=== PATIENT | male | born 1975 | race Caucasian/White ===

== ENCOUNTER 2018-06-29 22:42 | Emergency (ER) | payer OTHER ==
[2018-06-29 23:54] LABS: Absolute Monocytes 0.5 K/uL (0.1-1.3); Absolute Neutrophil 3.8 K/uL (1.8-8.0); Basophils % 1.2 % (0-1.3); Eosinophils % 6.2 % (0-4.4); Hematocrit 44.3 % (39.6-49.0); Lymphocytes % 28.8 % (15.3-44.8); MPV 10.8 fL (7.6-11.3); Monocytes % 7.8 % (3.3-12.3)
[2018-06-29 23:56] LABS: Protime INR 0.91
[2018-06-29] MEDS ORDERED: MORPHINE 4 MG/ML SYR ONE (23:57)
[2018-06-29] MEDS ORDERED: ONDANSETRON 4 MG/2 ML VIAL ONE (23:57)
[2018-06-29] MEDS ORDERED: NA CHLORIDE 0.9% 1,000 ML ONE (23:58)
[2018-06-30 00:07] LABS: Urine Blood NEGATIVE (NEG); Urine Glucose NEGATIVE (NEG); Urine Protein TRACE (NEG); Urine Specific Gravity 1.025 (1.005-1.030); Urine pH 6.5 (5.0-7.0)
[2018-06-30 00:17] LABS: ALT/SGPT 47 U/L (12-78); AST/SGOT 30 U/L (15-37); Albumin 3.9 g/dL (3.4-5.0); Alkaline Phosphatase 92 U/L (45-117); BUN Blood Urea Nitrogen 11 mg/dL (7-18); Bicarbonate 25 mmol/L (21-32); Bilirubin Direct 0.1 mg/dL (0-0.2); Bilirubin Total 0.5 mg/dL (0.2-1.0); Glucose Level 109 mg/dL (74-106); Magnesium 2.2 mg/dL (1.8-2.4); NT PRO-BNP 54 pg/mL (<125); Potassium 3.8 mmol/L (3.5-5.1); Protein, Total 7.5 g/dL (6.4-8.2); Sodium Level 142 mmol/L (136-145); Troponin (Emerg Dept Use Only) < 0.02 ng/mL (0.0-0.045)
[2018-06-30 00:17] LABS: Barbiturates NEGATIVE (NEGATIVE); Benzodiazepines NEGATIVE (NEGATIVE); Cocaine NEGATIVE (NEGATIVE); METHAMPHETAM NEGATIVE (NEGATIVE); Methadone NEGATIVE (NEGATIVE); Opiates NEGATIVE (NEGATIVE); Phencyclidine NEGATIVE (NEGATIVE); THC Cannibis NEGATIVE (NEGATIVE)
[2018-06-30] MEDS ORDERED: KETOROLAC 30 MG/ML INJ ONE (01:49)
--- NOTE | 2018-06-30 02:53 | EDPHYS ---
Physician Documentation [facility] Name: Ever Mixon Age: 43 yrs Sex: Male : 1975 Arrival Date: 06/29/2018 Time: 22:42 Bed 24 Private MD: ED Physician Abilio Cook HPI: 06/29 23:40 This 43 yrs old Male presents to ER via Ambulatory with complaints of juan Headache, Worst Ever. 23:40 The patient complains of pain to the forehead, right eye and right cheek. The patient juan describes the headache as aching, constant. Onset: The symptoms/episode began/occurred this morning, today. Associated signs and symptoms: The patient has no apparent associated signs or symptoms. Severity of symptoms: At its worst the pain was severe, the "worst in my life", in the emergency department the pain is unchanged. Headache History: Denies prior headaches. The symptoms are alleviated by Darkened room, quiet, remaining still. Historical: - Allergies: 22:55 No Known Allergies; jb4 - Home Meds: 22:55 [place] 5-325 mg Oral tab [Active]; Maximum Strenght Sinus relief (phenyleph HCL jb4 5mg/diphenhydramine HCL 12.5/ acetomenophen 325mg) [Active]; - PMHx: 22:55 None; jb4 - PSHx: 22:55 pins in left ankle and pin removal.; jb4 - Immunization history:: Adult Immunizations up to date. - Social history:: Smoking status: Patient/guardian denies using tobacco, Patient/guardian denies using alcohol. - Ebola Screening: : No symptoms or risks identified at this time. - Family history:: not pertinent. ROS: 23:40 Constitutional: Negative for fever, chills, and weight loss, Eyes: Negative for injury, juan pain, redness, and discharge, ENT: Negative for injury, pain, and discharge, Neck: Negative for injury, pain, and swelling, Cardiovascular: Negative for chest pain, palpitations, and edema, Respiratory: Negative for shortness of breath, cough, wheezing, and pleuritic chest pain, Abdomen/GI: Negative for abdominal pain, nausea, vomiting, diarrhea, and constipation, Back: Negative for injury and pain, : Negative for injury, bleeding, discharge, and swelling, MS/Extremity: Negative for injury and deformity, Skin: Negative for injury, rash, and discoloration, Psych: Negative for depression, anxiety, suicide ideation, homicidal ideation, and hallucinations, Allergy/Immunology: Negative for hives, rash, and allergies, Endocrine: Negative for neck swelling, polydipsia, polyuria, polyphagia, and marked weight changes, Hematologic/Lymphatic: Negative for swollen nodes, abnormal bleeding, and unusual bruising. 23:40 Neuro: Positive for headache. Exam: 23:43 Constitutional: This is a well developed, well nourished patient who is awake, alert, juan and in no acute distress. Head/Face: Normocephalic, atraumatic. Eyes: Pupils equal round and reactive to light, extra-ocular motions intact. Lids and lashes normal. Conjunctiva and sclera are non-icteric and not injected. Cornea within normal limits. Periorbital areas with no swelling, redness, or edema. ENT: Nares patent. No nasal discharge, no septal abnormalities noted. Tympanic membranes are normal and external auditory canals are clear. Oropharynx with no redness, swelling, or masses, exudates, or evidence of obstruction, uvula midline. Mucous membranes moist. Neck: Trachea midline, no thyromegaly or masses palpated, and no cervical lymphadenopathy. Supple, full range of motion without nuchal rigidity, or vertebral point tenderness. No Meningismus. Chest/axilla: Normal chest wall appearance and motion. Nontender with no deformity. No lesions are appreciated. Cardiovascular: Regular rate and rhythm with a normal S1 and S2. No gallops, murmurs, or rubs. Normal PMI, no JVD. No pulse deficits. Respiratory: Lungs have equal breath sounds bilaterally, clear to auscultation and percussion. No rales, rhonchi or wheezes noted. No increased work of breathing, no retractions or nasal flaring. Abdomen/GI: Soft, non-tender, with normal bowel sounds. No distension or tympany. No guarding or rebound. No evidence of tenderness throughout. Back: No spinal tenderness. No costovertebral tenderness. Full range of motion. Skin: Warm, dry with normal turgor. Normal color with no rashes, no lesions, and no evidence of cellulitis. MS/ Extremity: Pulses equal, no cyanosis. Neurovascular intact. Full, normal range of motion. Psych: Awake, alert, with orientation to person, place and time. Behavior, mood, and affect are within normal limits. 23:43 Neuro: Orientation: is normal, appropriate for stated age, no acute changes, Mentation: is normal, appropriate for stated age, no acute changes, Memory: is normal, appropriate for stated age, no acute changes, Cranial nerves: grossly normal, is grossly normal based on the patient's age, no acute changes, Cerebellar function: is grossly normal, is grossly normal based on the patient's age, no acute changes, Motor: is normal, is grossly normal based on the patient's age, Sensation: is normal, no obvious gross deficits, appropriate Gait: not tested. Deep tendon reflexes are 2+ (normal) in the bilateral brachioradialis, bicep, tricep and patellar and Achilles tendons, Babinski testing is normal, seizure activity, is not displayed by the patient. Vital Signs: 23:00 BP 158 / 104; Pulse 66; Resp 16; Temp 97.8(O); Pulse Ox 98% on R/A; Weight 90.72 kg; jb4 Height 5 ft. 7 in. (170.18 cm); Pain 10/10; 0418 00:07 BP 132 / 75; Pulse 65; Resp 18; Pulse Ox 100% on R/A; Pain 3/10; mg2 01:09 BP 143 / 89; Pulse 57; Resp 18; Pulse Ox 95% on R/A; mg2 02:13 BP 130 / 86; Pulse 55; Resp 18; Pulse Ox 95% on R/A; mg2 06/29 23:00 Body Mass Index 31.32 (90.72 kg, 170.18 cm) jb4 02:13 patient is sleeping, mg2 MDM: 06/29 23:29 Patient medically screened. [facility] 23:43 Data reviewed: vital signs, nurses notes, lab test result(s), EKG, radiologic studies, [facility] CT scan, plain films. 06/29 23:31 Order name: Basic Metabolic Panel; Complete Time: 01:11 juan 06/29 23:31 Order name: CBC with Diff; Complete Time: 01:11 juan 06/29 23:31 Order name: LFT's; Complete Time: 01: juan 06/29 23:31 Order name: Magnesium; Complete Time: 01: [facility] 06/29 23:31 Order name: NT PRO-BNP; Complete Time: 01:11 [facility] 06/29 23:31 Order name: PT-INR; Complete Time: 01:11 [facility] 06/29 23:31 Order name: Troponin (emerg Dept Use Only); Complete Time: 01:11 [facility] 06/29 23:31 Order name: XRAY Chest (1 view) [facility] 06/29 23:31 Order name: UDS; Complete Time: 01:11 [facility] 06/29 23:31 Order name: CT Head Brain wo Cont [facility] 06/29 23:33 Order name: CT Head Angio [facility] 06/30 00:04 Order name: Urine Dipstick--Ancillary (enter results) cm6 06/30 00:07 Order name: Urine Dipstick-Ancillary; Complete Time: 01:11 EDID 06/29 23:31 Order name: Cardiac monitoring; Complete Time: 00:02 [facility] 06/29 23:31 Order name: EKG - Nurse/Tech; Complete Time: 00:02 [facility] 06/29 23:31 Order name: IV Saline Lock; Complete Time: 00:03 [facility] 06/29 23:31 Order name: Labs collected and sent; Complete Time: 00:03 [facility] 06/29 23:31 Order name: O2 Per Protocol; Complete Time: 00:03 [facility] 06/29 23:31 Order name: O2 Sat Monitoring; Complete Time: 00:03 [facility] 06/29 23:31 Order name: Urine Dipstick-Ancillary (obtain specimen); Complete Time: 00:02 [facility] Administered Medications: 06/30 00:02 Drug: NS 0.9% 500 ml Route: IV; Rate: bolus; Site: right hand; mg2 01:10 Follow up: Response: No adverse reaction; IV Status: Completed infusion mg2 00:02 Drug: morphine 4 mg Route: IVP; Site: right hand; mg2 01:10 Follow up: Response: No adverse reaction; Marked relief of symptoms mg2 00:02 Drug: Zofran 4 mg Route: IVP; Site: right hand; mg2 01:09 Follow up: Response: No adverse reaction; Marked relief of symptoms mg2 00:27 Drug: NS 0.9% 1000 ml Route: IV; Rate: 125 ml/hr; Site: right antecubital; mg2 03:05 Follow up: Response: No adverse reaction; IV Status: Completed infusion mg2 01:38 Drug: TORadol 30 mg Route: IVP; Site: right antecubital; mg2 02:16 Follow up: Response: No adverse reaction; Marked relief of symptoms mg2 03:04 Drug: Rocephin 1 grams Route: IV; Rate: per protocol; Site: right antecubital; mg2 03:04 Follow up: Response: No adverse reaction; Medication administered at discharge.; IV mg2 Status: Completed infusion 03:04 Drug: Augmentin 875 mg Route: PO; mg2 03:04 Follow up: Response: No adverse reaction; Medication administered at discharge. mg2 Disposition: 06/30/18 02:53 Discharged to Home. Impression: Headache, Migraine, Acute sinusitis. - Condition is Stable. - Discharge Instructions: General Headache Without Cause, Migraine Headache, Sinus Headache, Sinusitis, Adult, Sinusitis, Adult, [id number], Migraine Headache, [id number], General Headache Without Cause, Jvco-bm-Hary, Sinus Headache, Jehx-xh-Vika. - Prescriptions for Fioricet with Codeine 50- 325-40-30 mg Oral capsule - take 1 capsule by ORAL route every 4 hours as needed not to exceed 6 capsules per 24hrs; 26 capsule. Augmentin 875- 125 mg Oral Tablet - take 1 tablet by ORAL route every 12 hours for 10 days; 20 tablet. - Medication Reconciliation Form, Thank You Letter, Antibiotic Education, Prescription Opioid Use, Work release form form. - Follow up: Private Physician; When: 2 - 3 days; Reason: Recheck today's complaints, Continuance of care, Re-evaluation by your physician. Follow up: César Bhandari MD; When: 2 - 3 days; Reason: Recheck today's complaints, Re-evaluation by your physician. - Problem is new. - Symptoms have improved. Signatures: Dispatcher [employer] Abilio Starr MD MD cha Bryson, James, RN RN jb4 Tai Graff RN RN mg2 Corrections: (The following items were deleted from the chart) 03:07 02:53 06/30/2018 02:53 Discharged to Home. Impression: Headache; Migraine; Acute mg2 sinusitis. Condition is Stable. Forms are Medication Reconciliation Form, Thank You Letter, Antibiotic Education, Prescription Opioid Use. Follow up: Private Physician; When: 2 - 3 days; Reason: Recheck today's complaints, Continuance of care, Re-evaluation by your physician. Follow up: César Bhandari; When: 2 - 3 days; Reason: Recheck today's complaints, Re-evaluation by your physician. Problem is new. Symptoms have improved. juan
--- NOTE | 2018-06-30 02:53 | ER ---
Nurse's Notes [facility] Name: Ever Mixon Age: 43 yrs Sex: Male : 1975 Arrival Date: 06/29/2018 Time: 22:42 Bed 24 Private MD: Diagnosis: Headache;Migraine;Acute sinusitis Presentation: 06/29 22:55 Presenting complaint: Patient states: Pt is complaining of a headache that started this jb4 morning. Pt reports taking [place] 5-325 \\T\\ 2100. reports it did not work, took maximum strength sinus relief after and still had no relief. 22:55 Method Of Arrival: Ambulatory jb4 22:55 Transition of care: patient was not received from another setting of care. Onset of jb4 symptoms was June 29, 2018. Risk Assessment: Do you want to hurt yourself or someone else? Patient reports no desire to harm self or others. Initial Sepsis Screen: Does the patient meet any 2 criteria? No. Patient's initial sepsis screen is negative. Does the patient have a suspected source of infection? No. Patient's initial sepsis screen is negative. Care prior to arrival: None. 22:55 Acuity: GEORGE 3 jb4 Triage Assessment: 22:55 Headache History: The patient has had previous headaches and this one is more severe jb4 than previous episodes. General: Appears uncomfortable, Behavior is cooperative. Pain: Pain currently is 10 out of 10 on a pain scale. Pain began this morning Aggravated by Light, Sound Also complains of sleeplessness. Neuro: Level of Consciousness is awake, alert, obeys commands, Oriented to person, place, time, situation. Historical: - Allergies: 22:55 No Known Allergies; jb4 - Home Meds: 22:55 [place] 5-325 mg Oral tab [Active]; Maximum Strenght Sinus relief (phenyleph HCL jb4 5mg/diphenhydramine HCL 12.5/ acetomenophen 325mg) [Active]; - PMHx: 22:55 None; jb4 - PSHx: 22:55 pins in left ankle and pin removal.; jb4 - Immunization history:: Adult Immunizations up to date. - Social history:: Smoking status: Patient/guardian denies using tobacco, Patient/guardian denies using alcohol. - Ebola Screening: : No symptoms or risks identified at this time. - Family history:: not pertinent. Screenin/18 00:05 Abuse screen: Denies threats or abuse. Denies injuries from another. Nutritional mg2 screening: No deficits noted. Tuberculosis screening: No symptoms or risk factors identified. Fall Risk IV access (20 points). Assessment: 00:03 General: Appears in no apparent distress. uncomfortable, Behavior is calm, cooperative. mg2 Pain: Complains of pain in right side of the head down to his neck Pain does not radiate. Pain at worst was 10 out of 10 on a pain scale. Quality of pain is described as aching, Pain began gradually, this morning Is intermittent. Neuro: Level of Consciousness is awake, alert, obeys commands, Oriented to person, place, time, situation, Reports headache in right that is the "worst ever", since morning. Cardiovascular: Capillary refill < 3 seconds Patient's skin is warm and dry. Rhythm is sinus rhythm. Respiratory: Airway is patent Respiratory effort is even, unlabored, Respiratory pattern is regular, symmetrical. GI: No signs and/or symptoms were reported involving the gastrointestinal system. : No signs and/or symptoms were reported regarding the genitourinary system. EENT: No signs and/or symptoms were reported regarding the EENT system. Derm: Skin is intact, is healthy with good turgor, Skin is pink, warm \\T\\ dry. normal. Musculoskeletal: Circulation, motion, and sensation intact. Capillary refill < 3 seconds. 02:12 Reassessment: Patient states feeling better. Patient states symptoms have improved. mg2 Vital Signs: 06/29 23:00 BP 158 / 104; Pulse 66; Resp 16; Temp 97.8(O); Pulse Ox 98% on R/A; Weight 90.72 kg; jb4 Height 5 ft. 7 in. (170.18 cm); Pain 10; 06/30 00:07 BP 132 / 75; Pulse 65; Resp 18; Pulse Ox 100% on R/A; Pain 3/10; mg2 01:09 BP 143 / 89; Pulse 57; Resp 18; Pulse Ox 95% on R/A; mg2 02:13 BP 130 / 86; Pulse 55; Resp 18; Pulse Ox 95% on R/A; mg2 06/29 23:00 Body Mass Index 31.32 (90.72 kg, 170.18 cm) jb4 02:13 patient is sleeping, mg2 ED Course: 06/29 22:42 Patient arrived in ED. am2 23:00 Arm band placed on right wrist. jb4 23:11 Triage completed. jb4 23:20 Tai Graff, RN is Primary Nurse. mg2 23:29 Abilio Cook MD is Attending Physician. juan 06/30 00:05 No provider procedures requiring assistance completed. Inserted saline lock: 20 gauge mg2 in right hand, using aseptic technique. Blood collected. 00:06 Patient has correct armband on for positive identification. Door closed. mg2 00:11 X-ray completed. Portable x-ray completed in exam room. Patient tolerated procedure kw well. 00:19 XRAY Chest (1 view) In Process Unspecified. EDMS 01:05 CT completed. Patient tolerated procedure well. Patient moved to CT via wheelchair. Patient moved back from CT. 01:09 CT Head Brain wo Cont In Process Unspecified. EDMS 01:15 CT Head Angio In Process Unspecified. EDMS 02:52 César Bhandari MD is Referral Physician. juan 03:07 IV discontinued, intact, bleeding controlled, No redness/swelling at site. Pressure mg2 dressing applied. Administered Medications: 00:02 Drug: NS 0.9% 500 ml Route: IV; Rate: bolus; Site: right hand; mg2 01:10 Follow up: Response: No adverse reaction; IV Status: Completed infusion mg2 00:02 Drug: morphine 4 mg Route: IVP; Site: right hand; mg2 01:10 Follow up: Response: No adverse reaction; Marked relief of symptoms mg2 00:02 Drug: Zofran 4 mg Route: IVP; Site: right hand; mg2 01:09 Follow up: Response: No adverse reaction; Marked relief of symptoms mg2 00:27 Drug: NS 0.9% 1000 ml Route: IV; Rate: 125 ml/hr; Site: right antecubital; mg2 03:05 Follow up: Response: No adverse reaction; IV Status: Completed infusion mg2 01:38 Drug: TORadol 30 mg Route: IVP; Site: right antecubital; mg2 02:16 Follow up: Response: No adverse reaction; Marked relief of symptoms mg2 03:04 Drug: Rocephin 1 grams Route: IV; Rate: per protocol; Site: right antecubital; mg2 03:04 Follow up: Response: No adverse reaction; Medication administered at discharge.; IV mg2 Status: Completed infusion 03:04 Drug: Augmentin 875 mg Route: PO; mg2 03:04 Follow up: Response: No adverse reaction; Medication administered at discharge. mg2 Outcome: 02:53 Discharge ordered by . juan 03:07 Discharged to home ambulatory, with family. mg2 03:07 Condition: stable 03:07 Discharge instructions given to patient, family, Instructed on discharge instructions, follow up and referral plans. medication usage, Demonstrated understanding of instructions, follow-up care, medications, Prescriptions given X 2. 03:07 Patient left the ED. mg2 Signatures: Dispatcher [employer] EDMS Abilio Cook MD MD cha Hagler, Ervin eh Whitley, Kimberlee kw Bryson, James, RN RN jb4 Sunshine Vang Michele, RN RN mg2
[2018-06-30] MEDS ORDERED: CEFTRIAXONE 1000 MG/VIAL ONE (03:07)
[2018-06-30] MEDS ORDERED: AMOX/K CLAV 875 MG TAB ONE (03:07)
--- NOTE | 2018-06-30 07:08 | RAD REPORT ---
EXAM DESCRIPTION: RAD - Chest Single View - 06/30/2018 12:14 am CLINICAL HISTORY: Cough COMPARISON: None. TECHNIQUE: AP portable chest image was obtained 0006 hours . FINDINGS: Lungs are clear. Heart and vasculature are normal. No measurable pleural effusion and no p neumothorax. No acute bony abnormality seen. No acute aortic findings suspected. IMPRESSION: No acute cardiopulmonary process.
--- NOTE | 2018-06-30 10:49 | RAD REPORT ---
EXAM DESCRIPTION: CT - Head Brain Wo Cont - 06/30/2018 2:24 am CLINICAL HISTORY: HEADACHE COMPARISON: None available TECHNIQUE: Axial CT of the head obtained from the skull apex to the skull base without contrast. FINDINGS: No acute intracranial hemorrhage identified. No mass, mass effect, shift of the midline, a bnormal extra-axial fluid collection or CT evidence of acute ischemic change identified. The ventricu lar system is unremarkable. No acute abnormalities of the supratentorial white matter, basal gangli a, cerebellum, or brainstem. Mucosal thickening of the paranasal sinuses. Mastoid air cells are well aerated. No skull fracture identified. Visualized orbits and globes are unremarkable. DLP: 840.7 mGy-cm IMPRESSION: 1. No acute intracranial abnormality identified. This exam was performed according to our departmental dose-optimization program, which includes autom ated exposure control, adjustment of the mA and/or kV according to patient size and/or use of iterati ve reconstruction technique. Electronically signed by: Nate Pablo 06/30/2018 1:16 AM CDT Due to temporary technical issues with the PACS/Fluency reporting system, reports are being signed by the in house radiologist as a courtesy to ensure prompt reporting. The interpreting radiologist is f ully responsible for the content of the report.
--- NOTE | 2018-06-30 10:51 | RAD REPORT ---
EXAM DESCRIPTION: CT - Head angio - 06/30/2018 2:24 am CLINICAL HISTORY: The patient is 43 years old and is Male; HEADACHE TECHNIQUE: Axial computed tomography images of the head with intravenous contrast during the arteria l phase of enhancement. Sagittal and coronal reformatted images were created and reviewed. This C T exam was performed using one or more of the following dose reduction techniques: automated exposu re control, adjustment of the mA and/or kV according to patient size, and/or use of iterative reconst ruction technique. COMPARISON: CT head without contrast of the same day. FINDINGS: RIGHT INTERNAL CAROTID ARTERY: No acute findings. Intracranial segment is patent with no significant stenosis. No aneurysm. RIGHT ANTERIOR CEREBRAL ARTERY: Unremarkable. No occlusion or significant stenosis. No aneurys m. RIGHT MIDDLE CEREBRAL ARTERY: Unremarkable. No occlusion or significant stenosis. No aneurysm. RIGHT POSTERIOR CEREBRAL ARTERY: Unremarkable. No occlusion or significant stenosis. No aneury sm. 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 Bila teral PICA are present. LEFT INTERNAL CAROTID ARTERY: No acute findings. Intracranial segment is patent with no signific ant stenosis. No aneurysm. LEFT ANTERIOR CEREBRAL ARTERY: Hypoplastic left anterior cerebral artery. No aneurysm. No occlusion or significant stenosis. LEFT MIDDLE CEREBRAL ARTERY: Unremarkable. No occlusion or significant stenosis. No aneurysm. LEFT POSTERIOR CEREBRAL ARTERY: Unremarkable. No occlusion or significant stenosis. No aneurys m. LEFT VERTEBRAL ARTERY: Unremarkable as visualized. BASILAR ARTERY: Unremarkable. No occlusion or significant stenosis. No aneurysm. VENTRICLES: Visualized brain demonstrates no hydrocephalus or herniation. SOFT TISSUES: Soft tissue zone showed no gross abnormality. SINUSES: Redemonstration of mucosal thickening in the paranasal sinuses. No air-fluid levels. MASTOID AIR CELLS: Mastoid air cells are pneumatized. ORBITS: Procedure orbits are unremarkable. IMPRESSION: 1. Diffuse diminutive caliber of the intracranial arterial vasculature which may be du e to vasospasm, vasculitis or reversible vasoconstriction syndrome. 2. No large vessel occlusion or aneurysm. 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 Electronically signed by: Fabian Guardado DO 06/30/2018 1:36 AM CDT Due to temporary technical issues with the PACS/Fluency reporting system, reports are being signed by the in house radiologist as a courtesy to ensure prompt reporting. The interpreting radiologist is f ully responsible for the content of the report.
== END 2018-06-30 03:07 | disposition home or self-care (01) ==
LOC: ER 22:42
DX: G43.909 Migraine, unspecified, not intractable, without status migrainosus (principal); J01.90 Acute sinusitis, unspecified
CPT/HCPCS: 36415; 70450; 70496; 71045; 80048; 80076; 80307; 81003; 83735; 83880; 84484; 85025; 85610; 99285; J2405; J7030; Q9967

== ENCOUNTER 2020-01-28 07:09 | Emergency (ER) | payer BC, OTHER ==
[2020-01-28] MEDS ORDERED: ONDANSETRON 4 MG/2 ML VIAL ONE (07:45)
[2020-01-28] MEDS ORDERED: MORPHINE 4 MG/ML SYR ONE (07:45)
[2020-01-28 07:59] LABS: Absolute Lymphocytes (CBC) 1.8 K/uL (0.7-4.9); Basophils % 1.3 % (0-1.3); Hematocrit 46.3 % (39.6-49.0); Lymphocytes % 21.4 % (15.3-44.8); MPV 10.7 fL (7.6-11.3); RBC Red Blood Cell Count 5.06 M/uL (4.33-5.43)
[2020-01-28 08:12] LABS: ALT/SGPT 72 U/L (12-78); AST/SGOT 32 U/L (15-37); Albumin 4.4 g/dL (3.4-5.0); Alkaline Phosphatase 80 U/L (45-117); BUN Blood Urea Nitrogen 13 mg/dL (7-18); Bicarbonate 25 mmol/L (21-32); Bilirubin Direct < 0.1 mg/dL (0-0.2); Bilirubin Total 0.7 mg/dL (0.2-1.0); Glucose Level 109 mg/dL (74-106); Lipase 66 U/L (73-393); NT PRO-BNP 19 pg/mL (<125); Potassium 4.3 mmol/L (3.5-5.1); Protein, Total 8.4 g/dL (6.4-8.2); Sodium Level 137 mmol/L (136-145); Troponin (Emerg Dept Use Only) < 0.02 ng/mL (0.0-0.045)
--- NOTE | 2020-01-28 08:13 | RAD REPORT ---
EXAM DESCRIPTION: Em Single View01/28/2020 7:52 am CLINICAL HISTORY: Chest pain COMPARISON: 2019 FINDINGS: The lungs appear clear of acute infiltrate. The heart is normal size IMPRESSION: No acute abnormalities displayed
--- NOTE | 2020-01-28 09:41 | ER ---
Nurse's Notes [facility] Name: Eevr Mixon Age: 44 yrs Sex: Male : 1975 Arrival Date: 01/28/2020 Time: 07:10 Bed 2 Private MD: Diagnosis: Chest pain, unspecified Presentation: 01/27 07:14 Chief complaint: Patient states: intermittent chest pain and nausea since 0200 today. aa5 Pt denies SOB. Reports baseline smoker's cough. 07:14 Coronavirus screen: Client denies travel out of the [place] in the last 14 days. At this aa5 time, the client does not indicate any symptoms associated with coronavirus-19. Ebola Screen: Patient negative for fever greater than or equal to 101.5 degrees Fahrenheit, and additional compatible Ebola Virus Disease symptoms. Initial Sepsis Screen: Does the patient meet any 2 criteria? No. Patient's initial sepsis screen is negative. Does the patient have a suspected source of infection? No. Patient's initial sepsis screen is negative. Risk Assessment: Do you want to hurt yourself or someone else? Patient reports no desire to harm self or others. Onset of symptoms was January 28, 2020. 07:14 Acuity: GEORGE 3 aa5 07:14 Method Of Arrival: Ambulatory aa5 Triage Assessment: 07:15 General: Appears distressed, uncomfortable, Behavior is cooperative, appropriate for bp age, anxious. Pain: Complains of pain in chest. EENT: No deficits noted. Neuro: Level of Consciousness is awake, alert, obeys commands, Oriented to person, place, time, situation, Appropriate for age. Cardiovascular: Rhythm is sinus rhythm. Respiratory: No deficits noted. GI: No signs and/or symptoms were reported involving the gastrointestinal system. : No signs and/or symptoms were reported regarding the genitourinary system. Derm: No deficits noted. Musculoskeletal: No deficits noted. Historical: - Allergies: 07:15 No Known Allergies; aa5 - PMHx: 07:15 Hypertension; aa5 - PSHx: 07:15 pins in left ankle and pin removal.; aa5 - Immunization history:: Adult Immunizations unknown. - Social history:: Smoking status: Patient reports the use of cigarette tobacco products, smokes one pack cigarettes per day. - Family history:: not pertinent. - Hospitalizations: : No recent hospitalization is reported. Screenin:15 Abuse screen: Denies threats or abuse. Denies injuries from another. Nutritional bp screening: No deficits noted. Tuberculosis screening: No symptoms or risk factors identified. Fall Risk None identified. Assessment: 07:15 General: SEE TRIAGE NOTE. bp 07:15 Pain: Pain does not radiate. Pain began 4 hours ago. bp 08:00 Reassessment: Patient appears in no apparent distress at this time. Patient and/or bp family updated on plan of care and expected duration. Pain level reassessed. Patient is alert, oriented x 3, equal unlabored respirations, skin warm/dry/pink. Patient states symptoms have improved. 08:38 Reassessment: Patient appears in no apparent distress at this time. Took the pt a warm rb3 blanket Patient denies pain at this time. 09:58 Reassessment: PT D/C HOME AMBULATORY, DX WITH NONSPECIFIC CHEST PAIN. bp Vital Signs: 07:14 BP 166 / 95; Pulse 79; Resp 20 S; Temp 98.2(O); Pulse Ox 100% on R/A; aa5 08:00 BP 165 / 98; Pulse 75; Resp 17; Pulse Ox 98% ; bp 09:06 BP 118 / 76; Pulse 82; Resp 17; Temp 97.8(TE); Pulse Ox 98% on R/A; mh5 09:59 BP 119 / 61; Pulse 65; Resp 14; Temp 98; Pulse Ox 98% ; bp ED Course: 07:10 Patient arrived in ED. ag5 07:15 EKG completed in triage. Results shown to MD. aa5 07:15 Patient has correct armband on for positive identification. Bed in low position. Call bp light in reach. Side rails up X2. Adult w/ patient. equipment monitor phototypesetting on. Pulse ox on. NIBP on. 07:17 Arm band placed on Patient placed in an exam room, on a stretcher. aa5 07:19 Thien Mckeon MD is Attending Physician. rn 07:22 Triage completed. aa5 07:27 Ricky Gonzalez, RN is Primary Nurse. bp 07:38 Inserted saline lock: 20 gauge in right antecubital area, using aseptic technique. bp Blood collected. Patient maintains SpO2 saturation greater than 95% on room air. 07:53 XRAY Chest (1 view) In Process Unspecified. EDMS 09:05 Repeat lab(s) drawn. by me, sent to lab. EKG done, by ED staff, reviewed by Thien hurley MD. 09:05 Troponin (emerg Dept Use Only): repeat Sent. [facility] 09:40 Garth Dotson MD is Referral Physician. rn 09:59 No provider procedures requiring assistance completed. IV discontinued, intact, bp bleeding controlled, No redness/swelling at site. Pressure dressing applied. Administered Medications: 07:38 Drug: morphine 4 mg Route: IVP; Site: right antecubital; bp 10:02 Follow up: Response: Pain is decreased bp 07:38 Drug: Zofran (Ondansetron) 4 mg Route: IVP; Site: right antecubital; bp 10:01 Follow up: Response: No adverse reaction; Nausea is decreased bp Outcome: 09:40 Discharge ordered by MD. rn 09:59 Discharged to home ambulatory, with family. bp 09:59 Condition: stable 09:59 Discharge instructions given to patient, Instructed on discharge instructions, follow up and referral plans. medication usage, Demonstrated understanding of instructions, follow-up care, medications, Prescriptions given X 1. 10:02 Patient left the ED. rb3 Signatures: Dispatcher [employer] EDTN Thien Mckeon MD MD rn Calderon, Audri, RN RN Gina Hughes Ricky Carbajal RN RN Maurice Ronquillo banner Josette Soliz, RN RN rb3 Corrections: (The following items were deleted from the chart) 10:15 10:15 Patient left the ED. rb3 rb3
--- NOTE | 2020-01-28 09:41 | EDPHYS ---
Physician Documentation [facility] Name: Ever Mixon Age: 44 yrs Sex: Male : 1975 Arrival Date: 01/28/2020 Time: 07:10 Bed 2 Private MD: ED Physician Thien Mckeon HPI: 01/27 08:09 This 44 yrs old Male presents to ER via Ambulatory with complaints of Chest rn Pain. 08:09 The patient or guardian reports chest pain that is located primarily in the substernal rn area. Onset: this morning. The pain does not radiate. Associated signs and symptoms: Pertinent negatives: abdominal pain, dizziness, headache, palpitations, shortness of breath, syncope, vomiting. Associated signs and symptoms: Pertinent positives: dizziness, nausea. The chest pain is described as sharp. Duration: The patient or guardian reports multiple episodes, the episodes last approximately 1 minute(s). Modifying factors: The symptoms are alleviated by nothing. the symptoms are aggravated by nothing. Severity of pain: At its worst the pain was moderate in the emergency department the pain has improved. The patient has experienced a previous episode. The patient has not recently seen a physician. Historical: - Allergies: 07:15 No Known Allergies; aa5 - PMHx: 07:15 Hypertension; aa5 - PSHx: 07:15 pins in left ankle and pin removal.; aa5 - Immunization history:: Adult Immunizations unknown. - Social history:: Smoking status: Patient reports the use of cigarette tobacco products, smokes one pack cigarettes per day. - Family history:: not pertinent. - Hospitalizations: : No recent hospitalization is reported. ROS: 08:09 Constitutional: Negative for fever, chills, and weight loss, Eyes: Negative for injury, rn pain, redness, and discharge, Neck: Negative for injury, pain, and swelling, Cardiovascular: Negative for palpitations, and edema, Respiratory: Negative for shortness of breath, cough, wheezing, and pleuritic chest pain, Abdomen/GI: Negative for abdominal pain, diarrhea, and constipation, Back: Negative for injury and pain, MS/Extremity: Negative for injury and deformity, Skin: Negative for injury, rash, and discoloration, Neuro: Negative for headache, weakness, numbness, tingling, and seizure. Exam: 08:09 Constitutional: This is a well developed, well nourished patient who is awake, alert, rn and in no acute distress. 08:09 Head/Face: Normocephalic, atraumatic. Cardiovascular: Regular rate and rhythm. No rn pulse deficits. Respiratory: No increased work of breathing, no retractions or nasal flaring. Abdomen/GI: soft, non-tender Skin: Warm, dry MS/ Extremity: Pulses equal, no cyanosis. Neuro: Awake and alert, GCS 15, oriented to person, place, time, and situation. Cranial nerves II-XII grossly intact. Motor strength 5/5 in all extremities. Sensory grossly intact. Cerebellar exam normal. 08:13 ECG was reviewed by the Attending Physician. rn Vital Signs: 07:14 BP 166 / 95; Pulse 79; Resp 20 S; Temp 98.2(O); Pulse Ox 100% on R/A; aa5 08:00 BP 165 / 98; Pulse 75; Resp 17; Pulse Ox 98% ; bp 09:06 BP 118 / 76; Pulse 82; Resp 17; Temp 97.8(TE); Pulse Ox 98% on R/A; mh5 09:59 BP 119 / 61; Pulse 65; Resp 14; Temp 98; Pulse Ox 98% ; bp MDM: 07:19 Patient medically screened. rn 09:39 Differential diagnosis: acute myocardial infarction, acute pericarditis, anxiety, rn coronary artery disease chest wall pain, congestive heart failure costochondritis, esophagitis, gastritis, gastroesophageal reflux disease (GERD), pleurisy, pneumonia, pneumothorax, pulmonary embolus, stable angina. Data reviewed: vital signs, nurses notes, lab test result(s), EKG, radiologic studies, plain films, and as a result, I will discharge patient. Counseling: I had a detailed discussion with the patient and/or guardian regarding: the historical points, exam findings, and any diagnostic results supporting the discharge/admit diagnosis, lab results, radiology results, the need for outpatient follow up, to return to the emergency department if symptoms worsen or persist or if there are any questions or concerns that arise at home. Response to treatment: the patient's symptoms have markedly improved after treatment, and as a result, I will discharge patient. Special discussion: Based on the patient's history, exam, and Dx evaluation, there is no indication for emergent intervention or inpatient Tx. It is understood by the patient/guardian that if the Sx's persist or worsen they need to return immediately for re-evaluation. I discussed with the patient/guardian in detail that at this point there is no indication for admission to the hospital. It is understood, however, that if the symptoms persist or worsen the patient needs to return immediately for re-evaluation. ED course: Repeat trop and ecg normal, no acute findings on bloodwork or cxr. Stable vitals. Brief episodes of sharp pain in smoker, possibly pleurisy, states has had pleurisy before. Recommend cardiology f/u given smoking history. . 09:41 Counseling: I had a detailed discussion with the patient and/or guardian regarding: rn smoking cessation. 01/27 07:29 Order name: Basic Metabolic Panel; Complete Time: 08:14 01/27 07:29 Order name: CBC with Diff; Complete Time: 08:14 01/27 07:29 Order name: LFT's; Complete Time: 08:14 01/27 07:29 Order name: NT PRO-BNP; Complete Time: 08:14 01/27 07:29 Order name: Troponin (emerg Dept Use Only); Complete Time: 08:14 01/27 07:29 Order name: Lipase; Complete Time: 08:14 01/27 07:29 Order name: XRAY Chest (1 view); Complete Time: 08:17 01/27 07:29 Order name: EKG; Complete Time: 07:30 01/27 07:29 Order name: Cardiac monitoring; Complete Time: 07:34 01/27 07:29 Order name: D-Dimer; Complete Time: 08:14 01/27 08:45 Order name: Troponin (emerg Dept Use Only): repeat; Complete Time: 09:39 01/27 08:45 Order name: EKG: repeat; Complete Time: 08:46 01/27 07:29 Order name: EKG - Nurse/Tech; Complete Time: 07:34 01/27 07:29 Order name: IV Saline Lock; Complete Time: 07:40 01/27 07:29 Order name: Labs collected and sent; Complete Time: 07:40 01/27 07:29 Order name: O2 Per Protocol; Complete Time: 07:34 01/27 07:29 Order name: O2 Sat Monitoring; Complete Time: 07:34 rn EC:13 Rate is 72 beats/min. Rhythm is regular. QRS [place] is Normal. [place] interval is normal. QRS rn interval is normal. QT interval is normal. No Q waves. T waves are Normal. No ST changes noted. Clinical impression: Normal ECG. Interpreted by me. Reviewed by me. Administered Medications: 07:38 Drug: morphine 4 mg Route: IVP; Site: right antecubital; bp 10:02 Follow up: Response: Pain is decreased bp 07:38 Drug: Zofran (Ondansetron) 4 mg Route: IVP; Site: right antecubital; bp 10:01 Follow up: Response: No adverse reaction; Nausea is decreased bp Disposition: 01/28/20 09:40 Discharged to Home. Impression: Chest pain, unspecified. - Condition is Stable. - Discharge Instructions: Nonspecific Chest Pain, Steps to Quit Smoking. - Prescriptions for Ibuprofen 800 mg Oral Tablet - take 1 tablet by ORAL route every 12 hours As needed take with food; 20 tablet. - Medication Reconciliation Form, Thank You Letter, Antibiotic Education, Prescription Opioid Use form. - Follow up: Garth Dotson MD; When: As needed; Reason: Recheck today's complaints, Re-evaluation by your physician. - Problem is new. - Symptoms have improved. Signatures: Dispatcher [employer] EDMS Thien Mckeon MD MD rn Calderon, Audri, RN RN aa5 Ricky Gonzalez RN RN bp Josette Soliz, RN RN rb3 Corrections: (The following items were deleted from the chart) 08:12 08:09 Constitutional: Negative for fever, chills, and weight loss, Eyes: Negative for rn injury, pain, redness, and discharge, Neck: Negative for injury, pain, and swelling, Cardiovascular: Negative for palpitations, and edema, Respiratory: Negative for shortness of breath, cough, wheezing, and pleuritic chest pain, Abdomen/GI: Negative for abdominal pain, nausea, vomiting, diarrhea, and constipation, Back: Negative for injury and pain, MS/Extremity: Negative for injury and deformity, Skin: Negative for injury, rash, and discoloration, Neuro: Negative for headache, weakness, numbness, tingling, and seizure, rn 10:15 09:40 01/28/2020 09:40 Discharged to Home. Impression: Chest pain, unspecified. rb3 Condition is Stable. Forms are Medication Reconciliation Form, Thank You Letter, Antibiotic Education, Prescription Opioid Use. Follow up: Garth Dotson; When: As needed; Reason: Recheck today's complaints, Re-evaluation by your physician. Problem is new. Symptoms have improved. rn
[2020-01-28 11:15] VITALS: O2SAT 98
[2020-01-28 11:18] VITALS: BP 119/61; TEMP 98
== END 2020-01-28 10:15 | disposition home or self-care (01) ==
LOC: ER 07:09
DX: R07.9 Chest pain, unspecified (principal); F17.210 Nicotine dependence, cigarettes, uncomplicated
CPT/HCPCS: 93005 ×2; 85025; 80048; 36415; 85379; 80076; 84484 ×2; 83690; 83880; 71045; 96375; 96374; 99285; J2405

== ENCOUNTER 2021-10-19 08:02 | Emergency (ER) | payer BC ==
--- NOTE | 2021-10-19 09:20 | RAD REPORT ---
EXAM DESCRIPTION: Em Single View10/19/2021 8:41 am CLINICAL HISTORY: Cough COMPARISON: 2019 FINDINGS: The lungs appear clear of acute infiltrate. The heart is normal size IMPRESSION: No acute abnormalities displayed
--- NOTE | 2021-10-19 10:20 | ER ---
Nurse's Notes [facility] Name: Ever Mixon Age: 46 yrs Sex: Male : 1975 Arrival Date: 10/19/2021 Time: 08:03 Bed 19 Private MD: Diagnosis: Influenza due to unidentified influenza virus with other respiratory manifestations Presentation: 10/19 08:12 Chief complaint: Patient states: Cough, fatigue, SOB for 10 days. Thought he was ll1 getting better, then got worse again the past two days. No fever the past 3 days. + diarrhea. S.O. also has cough. Coronavirus screen: Vaccine status: Patient reports being unvaccinated. Client denies travel out of the [place] in the last 14 days. chills, cough unrelated to allergies, diarrhea, difficulty breathing, fatigue, headache, muscle pain, Client presents with at least one sign or symptom that may indicate coronavirus-19. Standard/surgical mask placed on the client. Ebola Screen: Patient denies travel to an Ebola-affected area in the 21 days before illness onset. Initial Sepsis Screen: Does the patient meet any 2 criteria? No. Patient's initial sepsis screen is negative. Does the patient have a suspected source of infection? Yes: Productive cough/pneumonia. Risk Assessment: Do you want to hurt yourself or someone else? Patient reports no desire to harm self or others. Onset of symptoms was October 09, 2021. 08:12 Method Of Arrival: Ambulatory ll1 08:12 Acuity: GEORGE 4 ll1 Triage Assessment: 08:14 General: Appears in no apparent distress. Behavior is calm, cooperative, appropriate ll1 for age. Respiratory: Reports shortness of breath cough that is. GI: Reports diarrhea. 08:14 Pain: Complains of pain in generalized Quality of pain is described as aching. ll1 Historical: - Allergies: 08:11 No Known Allergies; ll1 - PMHx: 08:11 Hypertension; ll1 - PSHx: 08:11 None; ll1 - Immunization history:: Client reports having NOT received the Covid vaccine. - Social history:: Smoking status: Patient reports the use of cigarette tobacco products, smokes one pack cigarettes per day. Screenin:14 Abuse screen: Denies threats or abuse. Nutritional screening: No deficits noted. ll1 Tuberculosis screening: No symptoms or risk factors identified. Fall Risk Total Hernandez Fall Scale indicates No Risk (0-24 pts). Assessment: 09:15 Reassessment: No changes from previously documented assessment. Patient and/or family ll1 updated on plan of care and expected duration. Pain level reassessed. Patient is alert, oriented x 3, equal unlabored respirations, skin warm/dry/pink. Seemed upset with the news his flu B came back positive. Started cursing, upset that there is no specific treatment for having flu B for 10 days, S.O. seemed more understanding and less upset. Waiting on covid swab result. 10:15 Reassessment: No changes from previously documented assessment. Covid swab never ll1 collected. Mis communication between providers. Patient still upset with lack of care for his flu B+ diagnosis. Started cursing at the nurse informing him of the delay. Took off out of ER visibly upset, gait steady. States, "I know ya'll wont forget to charge my insurance for this!". apologizing for his behavior. Apologized to for everything. Vital Signs: 08:12 BP 137 / 92; Pulse 71; Resp 17; Temp 98.0; Pulse Ox 97% on R/A; Weight 97.52 kg; Height ll1 5 ft. 7 in. (170.18 cm); 09:58 BP 122 / 69; Pulse 56; Resp 16; Pulse Ox 97% on R/A; ll1 08:12 Body Mass Index 33.67 (97.52 kg, 170.18 cm) ll1 ED Course: 08:03 Patient arrived in ED. am2 08:07 Hilario Patel is PHCP. jl9 08:07 Abilio Cook MD is Attending Physician. jl9 08:11 Jesus Prasad, JUSTIN is Primary Nurse. ll1 08:11 Arm band placed on Patient placed in an exam room, on a stretcher. ll1 08:14 Triage completed. ll1 08:14 Patient has correct armband on for positive identification. Bed in low position. Call ll1 light in reach. Side rails up X 1. conveyor monitor on. Pulse ox on. 08:27 Flu and/or RSV swab sent to lab. vg1 08:43 XRAY Chest (1 view) In Process Unspecified. EDMS 10:20 No provider procedures requiring assistance completed. Patient did not have IV access ll1 during this emergency room visit. Administered Medications: No medications were administered Medication: 08:14 VIS not applicable for this client. ll1 Outcome: 10:20 Discharge ordered by . [email or web address] 10:20 Discharged to home ambulatory. ll1 10:20 Condition: stable 10:20 Discharge instructions given to significant other, Instructed on discharge instructions, follow up and referral plans. no drinking with medication, no driving heavy equipment, medication usage, Demonstrated understanding of instructions, follow-up care, medications, Prescriptions given X 2. 10:33 Patient left the ED. ll1 Signatures: Dispatcher [employer] EDMS Sunshine Vang amFadia Wang, RN RN vg1 Jesus Prasad RN RN ll1 Hilario [email or web address] Corrections: (The following items were deleted from the chart) 10:22 09:15 Reassessment: No changes from previously documented assessment. Patient and/or ll1 family updated on plan of care and expected duration. Pain level reassessed. Patient is alert, oriented x 3, equal unlabored respirations, skin warm/dry/pink. Seemed upset with the news his flu B came back positive. S.O. seemed more understanding and less upset. ll1 10:31 09:15 Reassessment: No changes from previously documented assessment. Patient and/or ll1 family updated on plan of care and expected duration. Pain level reassessed. Patient is alert, oriented x 3, equal unlabored respirations, skin warm/dry/pink. Seemed upset with the news his flu B came back positive. S.O. seemed more understanding and less upset. Waiting on covid swab result. ll1
--- NOTE | 2021-10-19 10:20 | EDPHYS ---
Physician Documentation [facility] Name: Ever Mixon Age: 46 yrs Sex: Male : 1975 Arrival Date: 10/19/2021 Time: 08:03 Bed 19 Private MD: JERARDO Physician Abilio Cook HPI: 10/19 08:22 This 46 yrs old Male presents to ER via Ambulatory with complaints of Cough, jl9 Chest Congestion. 08:22 The patient or guardian reports cough, that is intermittent. Onset: The jl9 symptoms/episode began/occurred 10 day(s) ago. Modifying factors: the symptoms are aggravated by exertion. Associated signs and symptoms: Pertinent positives: Pertinent negatives: chest pain, fever, nausea, sore throat, vomiting. Historical: - Allergies: 08:11 No Known Allergies; ll1 - PMHx: 08:11 Hypertension; ll1 - PSHx: 08:11 None; ll1 - Immunization history:: Client reports having NOT received the Covid vaccine. - Social history:: Smoking status: Patient reports the use of cigarette tobacco products, smokes one pack cigarettes per day. ROS: 08:23 Constitutional: Negative for fever, chills, and weight loss, Eyes: Negative for injury, jl9 pain, redness, and discharge, ENT: Negative for injury, pain, and discharge, Neck: Negative for injury, pain, and swelling, Cardiovascular: Negative for chest pain, palpitations, and edema, Respiratory: Negative for shortness of breath, cough, wheezing, and pleuritic chest pain. 08:23 Abdomen/GI: Negative for abdominal pain, nausea, vomiting, diarrhea, and constipation, Back: Negative for injury and pain, : Negative for injury, bleeding, discharge, and swelling, MS/Extremity: Negative for injury and deformity, Skin: Negative for injury, rash, and discoloration, Neuro: Negative for headache, weakness, numbness, tingling, and seizure, Psych: Negative for depression, anxiety, suicide ideation, homicidal ideation, and hallucinations, Allergy/Immunology: Negative for hives, rash, and allergies, Endocrine: Negative for neck swelling, polydipsia, polyuria, polyphagia, and marked weight changes, Hematologic/Lymphatic: Negative for swollen nodes, abnormal bleeding, and unusual bruising. 08:23 Respiratory: Positive for cough, "sounds productive". Exam: 08:24 Constitutional: This is a well developed, well nourished patient who is awake, alert, jl9 and in no acute distress. Head/Face: Normocephalic, atraumatic. Eyes: Pupils equal round and reactive to light, extra-ocular motions intact. Lids and lashes normal. Conjunctiva and sclera are non-icteric and not injected. Cornea within normal limits. Periorbital areas with no swelling, redness, or edema. ENT: Mucous membranes moist. Neck: Trachea midline, no thyromegaly or masses palpated, and no cervical lymphadenopathy. Supple, full range of motion without nuchal rigidity, or vertebral point tenderness. No Meningismus. Chest/axilla: Normal chest wall appearance and motion. Nontender with no deformity. No lesions are appreciated. Cardiovascular: Regular rate and rhythm with a normal S1 and S2. No gallops, murmurs, or rubs. Normal PMI, no JVD. No pulse deficits. 08:24 Abdomen/GI: Soft, non-tender, with normal bowel sounds. No distension or tympany. No guarding or rebound. No evidence of tenderness throughout. Back: No spinal tenderness. No costovertebral tenderness. Full range of motion. Skin: Warm, dry with normal turgor. Normal color with no rashes, no lesions, and no evidence of cellulitis. MS/ Extremity: Pulses equal, no cyanosis. Neurovascular intact. Full, normal range of motion. Neuro: Awake and alert, GCS 15, oriented to person, place, time, and situation. Cranial nerves II-XII grossly intact. Motor strength 5/5 in all extremities. Sensory grossly intact. Cerebellar exam normal. Normal gait. Psych: Awake, alert, with orientation to person, place and time. Behavior, mood, and affect are within normal limits. 08:24 Respiratory: Exam negative for accessory muscles, respiratory distress, Respirations: normal, Breath sounds: + upper airway congestion. Vital Signs: 08:12 BP 137 / 92; Pulse 71; Resp 17; Temp 98.0; Pulse Ox 97% on R/A; Weight 97.52 kg; Height ll1 5 ft. 7 in. (170.18 cm); 09:58 BP 122 / 69; Pulse 56; Resp 16; Pulse Ox 97% on R/A; ll1 08:12 Body Mass Index 33.67 (97.52 kg, 170.18 cm) ll1 MDM: 08:07 Patient medically screened. jl9 08:25 Data reviewed: vital signs, nurses notes. jl9 10:19 Counseling: I had a detailed discussion with the patient and/or guardian regarding: the jl9 historical points, exam findings, and any diagnostic results supporting the discharge/admit diagnosis, lab results, the need for outpatient follow up, to return to the emergency department if symptoms worsen or persist or if there are any questions or concerns that arise at home. 10/19 08:11 Order name: Flu; Complete Time: 09:20 jl9 10/19 08:11 Order name: XRAY Chest (1 view); Complete Time: 09:23 jl9 Administered Medications: No medications were administered Disposition Summary: 10/19/21 10:20 Discharge Ordered Location: Home jl9 Condition: Stable jl9 Diagnosis - Influenza due to unidentified influenza virus with other respiratory manifestations jl9 Followup: jl9 - With: Private Physician - When: 1 - 2 days - Reason: Recheck today's complaints, Continuance of care, Re-evaluation by your physician Discharge Instructions: - Discharge Summary Sheet iw - Influenza, Adult, [id number] jl9 Forms: - Work release form iw - Medication Reconciliation Form jl9 - Thank You Letter jl9 - Antibiotic Education jl9 - Prescription Opioid Use jl9 Prescriptions: - albuterol sulfate 90 mcg/actuation Inhalation HFA aerosol inhaler - inhale 2 puff by INHALATION route every 4-6 hours As needed; 18 gram; Refills: jl9 0, Product Selection Permitted - [id number] 2-30-10 mg/5 mL Oral syrup - take 10 milliliter by ORAL route every 4 hours As needed; 100 milliliter; jl9 Refills: 0, Product Selection Permitted Signatures: Dispatcher [employer] Jesus Maloney RN RN [email or web address] Hilario Ptael jl9
[2021-10-19 11:09] VITALS: TEMP 98; O2SAT 97
[2021-10-19 11:12] VITALS: BP 122/69
== END 2021-10-19 10:33 | disposition home or self-care (01) ==
LOC: ER 08:02
DX: J11.1 Influenza due to unidentified influenza virus with other respiratory manifestations (principal); I10 Essential (primary) hypertension; F17.210 Nicotine dependence, cigarettes, uncomplicated
CPT/HCPCS: 71045; 87804; 99284